=== PATIENT | male | born 1990 | race Caucasian/White ===

== ENCOUNTER 2018-10-13 08:18 | Emergency (ER) | payer SELFPAY ==
[2018-10-13 08:34] VITALS: BP 112/64; PULSE 60; RESP 20; TEMP 36.3; O2SAT 100; BMI 22.9
--- NOTE | 2018-10-13 08:39 | DI.RAD.S_ITS ---
PROCEDURE: XR HAND RT MIN 3V INDICATIONS: trauma/pain/swelling TECHNIQUE: 3 views of the hand(s) acquired. COMPARISON: [facility], , HAND 3V RIGHT, 03/08/2009, 11:49. FINDINGS: Bones: Old deformity involving fifth distal phalangeal tuft is again seen, unchanged from 2009 study. There is no acute fractures or dislocations. Carpal bones are normally aligned. No suspicious bony lesions. Soft tissues: Linear calcification is again seen projecting volar aspect of first distal phalangeal head region, also unchanged from 2009 study. IMPRESSION: No acute right hip fracture or dislocation. Stable appearing old deformity involving fifth distal phalangeal tuft. Stable appearing calcification in right thumb, unchanged from 2009 study. Dictated by: Nilo Márquez M.D. on 10/13/2018 at 9:11 Approved by: Nilo Márquez M.D. on 10/13/2018 at 9:14
--- NOTE | 2018-10-13 08:41 | ED.UPPEXIN ---
HPI - Extremity Injury (Upper) General Chief Complaint: Extremity Injury, Upper Stated Complaint: hurt right hand at home Time Seen by Provider: 10/13/18 08:26 Source: patient Mode of arrival: ambulatory Limitations: no limitations History of Present Illness HPI narrative: Patient complains of right hand pain and swelling, particularly in the 5th metacarpal bone area, after punching a wall of frustrations morning. Patient states he was not injured in any other way. He does not specify what the source of frustration was. MD complaint: injury to: right and hand Onset (ago): hour(s) ( About 1) Other injuries: none Handedness: right Place: home Severity: moderate Severity scale (1-10): 5 Exacerbating factors: movement of extremity Context: direct blow Associated symptoms: denies other symptoms Related Data Home Medications Medication Instructions Recorded Confirmed No Known Home Medications 10/13/18 10/13/18 Allergies Allergy/AdvReac Type Severity Reaction Status Date / Time No Known Allergies Allergy Uncoded 10/13/18 08:37 Review of Systems Review of Systems All systems reviewed & are unremarkable except as noted in HPI and below Constitutional Denies chills, Denies fever(s), Denies lethargy and Denies weakness Eyes Denies change in vision, Denies eye discharge, Denies irritation and Denies loss of vision ENT Ears, Nose, Mouth, and Throat: Denies change in voice, Denies neck pain and Denies sore throat Cardiovascular Denies chest pain, Denies irregular heart rhythm, Denies lightheadedness, Denies palpitations, Denies dyspnea, Denies dyspnea on exertion and Denies orthopnea Respiratory Denies cough, Denies dyspnea, Denies dyspnea on exertion and Denies wheezing Gastrointestinal Gastrointestinal: Denies abdominal pain, Denies change in bowel habits, Denies diarrhea, Denies nausea and Denies vomiting Genitourinary Denies hematuria, Denies flank pain, Denies urinary incontinence and Denies urinary urgency Musculoskeletal Denies neck pain Comments: pain and swelling of right hand Integumentary/Breasts Denies pruritus, Denies erythema, Denies rash and Denies wounds Neurologic Denies confusion, Denies loss of vision and Denies weakness Psychiatric Denies anxiety, Denies confusion, Denies depression, Denies homicidal ideation and Denies suicidal ideation Endocrine Denies palpitations Hematologic/Lymphatic Denies easy bruising Allergic/Immunologic Denies wheezing [facility] Medical History Boxer's fracture (Acute) Surgical History No pertinent past surgical history (Acute) Social History Smoking Status: Current every day smoker Exam Initial Vital Signs Initial Vital Signs: Vital Signs Temperature 97.4 F L 10/13/18 08:34 Pulse Rate 60 10/13/18 08:34 Respiratory Rate 20 10/13/18 08:34 Blood Pressure 112/64 10/13/18 08:34 Pulse Oximetry 100 10/13/18 08:34 Const General: cooperative and well developed Nutritional Appearance: well nourished Orientation: alert, awake, oriented x3 and not confused HENMT Head: normocephalic and atraumatic Ears: external ears normal Nose: external nose normal and No nasal discharge Face and sinus: face symmetric Mouth: oral mucosae normal and moist mucous membranes Teeth and gingiva: dentition normal Throat: uvula midline Eyes General: appearance normal, both eyes and all related structures Eyelids: eyelids normal Conjunctivae: conjunctivae normal Sclera: sclerae normal Pupils: PERRL EOM: EOM intact bilaterally Neck Neck: normal visual inspection, trachea midline, No lymphadenopathy, No midline deformity and No JVD Lymphatic: No lymphedema Chest Chest: normal inspection of the chest Resp Effort & Inspection: normal respiratory effort, able to speak in complete sentences, no respiratory distress and no use of accessory muscles Cardio Rate: regular rate Rhythm: regular rhythm Pulses: normal peripheral pulses Back/Spine/Pelvis Cervical Spine: cervical ROM normal and No pain with cervical ROM Skin General: no rashes or lesions noted, No jaundice and No petechiae Neuro General: alert, oriented x3, gait normal and no focal motor deficits Speech: speech normal Extrem General: full ROM Right upper extremity: edema ( patient has mild swelling over the right 5th metacarpal shaft. No deformity. Chronic deformities noted of the right small finger. The patient has a few small abrasions over his 4th and 5th fingers as well as the 4th MCP joint. Patient is neurovascularly intact.); abnormal to inspection Psych Appearance: well kempt Mental Status: mental status grossly normal Attitude: cooperative Thought Content: normal and suicidality Judgment: judgment good Course Course Narrative: Patient remained stable throughout his stay in the emergency department. He was worked up with an x-ray of his hand, which was found to be negative. Orders Ordered: ED Orders 10/13/18 08:39 XR hand RT min 3V Stat Vital Signs - 8 hr 10/13/18 08:34 Temperature 97.4 F L Pulse Rate 60 Respiratory Rate 20 Blood Pressure 112/64 Pulse Oximetry 100 MDM - Extremity Injury (Upper) Medical Records Attestation: I reviewed the patient's medical records. Imaging Data X-ray hand: Attestation: I personally reviewed and interpreted this imaging study as follows: My impression: negative Radiologist's impression: PROCEDURE: XR HAND RT MIN 3V INDICATIONS: trauma/pain/swelling TECHNIQUE: 3 views of the hand(s) acquired. COMPARISON: [facility], , HAND 3V RIGHT, 03/08/2009, 11:49. FINDINGS: Bones: Old deformity involving fifth distal phalangeal tuft is again seen, unchanged from 2008 study. There is no acute fractures or dislocations. Carpal bones are normally aligned. No suspicious bony lesions. Soft tissues: Linear calcification is again seen projecting volar aspect of first distal phalangeal head region, also unchanged from 2009 study. IMPRESSION: No acute right hip fracture or dislocation. Stable appearing old deformity involving fifth distal phalangeal tuft. Stable appearing calcification in right thumb, unchanged from 2009 study. Dictated by: Nilo Márquez M.D. on 10/13/2018 at 9:11 Approved by: Nilo Márquez M.D. on 10/13/2018 at 9:14 Discharge Plan Departure Patient Disposition: Home Clinical Impression: Contusion of hand, right Discharge Date/Time: 10/13/18 09:27 Interventions: ED Discharge Assessment Last Done: 10/13/18 09:26 Instructions: DI for Contusion Activity Restrictions/Additional Instructions: Your x-rays all look good--no broken bones. Prescriptions: No Action No Known Home Medications RF: 0 Referrals: Tarun Friedman MD [Primary Care Provider] -
== END 2018-10-13 09:27 | disposition home or self-care (01) ==
PROVIDERS: Emergency Provider Emergency Medicine; Family Provider Family Medicine; PCP Family Medicine
DX: S60.221A Contusion of right hand, initial encounter (principal); W22.8XXA Striking against or struck by other objects, initial encounter
CPT/HCPCS: 73130; 99282; 99283